=== PATIENT | male | born 1945 | race Hispanic/Latino ===

== ENCOUNTER 2023-06-28 06:02 | Day surgery (SDC) | payer MEDICARE ==
[2023-06-26 09:34] LABS: CREATININE 0.9 mg/dL (0.5-1.3); POTASSIUM 4.5 mmol/L (3.5-5.1)
[2023-06-26 09:35] VITALS: BP 154/70; PULSE 64; RESP 18
[2023-06-26 09:41] LABS: INR <= 0.93 (0.85-1.15); PROTHROMBIN TIME 10.7 SEC (9.6-11.6)
[2023-06-26 09:42] LABS: PARTIAL THROMBOPLASTIN TIME 28.2 SEC (26.3-35.5)
[2023-06-26 09:43] LABS: BASOPHILS # (AUTO) 0.05 K/uL (0.00-0.20); BASOPHILS % (AUTO) 0.6 % (0.0-5.0); EOSINOPHILS # (AUTO) 0.48 K/uL (0.00-0.70); EOSINOPHILS % (AUTO) 5.4 % (0.0-8.0); HEMATOCRIT 44.7 % (42-54); LYMPHOCYTES % (AUTO) 22.9 % (21.0-51.0); MEAN CORPUSCULAR HEMOGLOBIN 32.9 pg (27.0-33.0); MEAN CORPUSCULAR HGB CONC 35.1 g/dL (32.0-36.0); MEAN CORPUSCULAR VOLUME 93.7 fL (79-99); MONOCYTES # (AUTO) 0.8 K/uL (0.1-1.0); NEUTROPHILS # (AUTO) 5.4 K/uL (1.8-7.7); PLATELET COUNT (AUTO) 252 K/uL (130-400); RED BLOOD CELL COUNT(AUTO) 4.77 MIL/uL (4.50-6.20); RED CELL DISTRIBUTION WIDTH 12.2 % (11.0-15.5); WHITE BLOOD COUNT (AUTO) 8.8 K/uL (4.8-10.8)
[2023-06-26 10:19] LABS: B-TYPE NATRIURETIC PEPTIDE 215 pg/mL (0-100)
[2023-06-28] VITALS (9 sets, daily range): BP systolic 140–158; BP diastolic 64–82; PULSE 62–71; RESP 15–18
[~2023-06-28] VITALS: Ht 172.7 cm; Wt 84.3 kg
[~2023-06-28 06:02] MED LIST: AEC81 PO; AMLO-258 PO; CETI10TA57 PO; CHOL100046 PO; ENAL-91 PO; ISOS30TA92 PO; METF-444 PO; METO-391 PO; NITR0.4T50 SL; PARO10TA71 PO; SIMV-46 PO; VITAMIN B12 PO
[2023-06-28] MEDS ORDERED: LIDOCAINE HCL 400MG/20ML VIAL ONE (07:11)
[2023-06-28] MEDS ORDERED: HEPARIN 10,000 UNIT/10ML (1,000 UNIT/ML) VIAL ONE (07:11)
[2023-06-28] MEDS ORDERED: IOHEXOL 350 MG/ML 100ML INFUS..BTL IV ONE ×2 (07:11→07:12)
[2023-06-28] MEDS ORDERED: MIDAZOLAM HCL 1 MG/ML 2ML VIAL ONE (07:34)
[2023-06-28] MEDS ORDERED: FENTANYL CITRATE PF 50 MCG/1 ML 2ML VIAL ONE (07:34)
[2023-06-28] MEDS ORDERED: CLOPIDOGREL 300MG TAB ONE (08:24)
[2023-06-28] MEDS ORDERED: ATROPINE 1MG SYG IVP ONE (08:27)
[2023-06-28] MEDS ORDERED: IOHEXOL-350 50ML VIAL IV ONE (09:15)
[2023-06-28] MEDS ORDERED: ONDANSETRON 4MG INJ ONE (09:21)
[2023-06-28] MEDS ORDERED: NITROGLYCERIN 4.1 GM SPRAY TL ONE (09:39)
[2023-06-28] MEDS ORDERED: MORPHINE 4 MG SYG ONE (09:49)
[2023-06-28] MEDS ORDERED: GLUCAGON 1MG KIT 1 MG ML IM PRN (10:00)
[2023-06-28] MEDS ORDERED: DEXTROSE 50%-WATER 50 ML DISP.SYRIN IV PRN (10:00)
[2023-06-28] MEDS ORDERED: 0.9%NACL 1000ML 1,000 ML IV SCH (10:00)
[2023-06-28] MEDS: FAMOTIDINE 20MG VIAL IV ONE (10:54)
[2023-06-28] MEDS: MAG/ALUM/SIMETH 30 ML UDCUP PO ONE (10:54)
[2023-06-28] MEDS: LIDOCAINE HCL 2% VISCOUS 15 ML UDCUP ONE (10:54)
[2023-06-28] MEDS ORDERED: FAMOTIDINE 20MG VIAL IV ONE (11:00)
[2023-06-28] MEDS ORDERED: MAG/ALUM/SIMETH 30 ML UDCUP PO ONE (11:00)
[2023-06-28] MEDS ORDERED: PANT40TA PO (17:27)
== END 2023-06-28 14:45 | disposition home or self-care (01) ==
LOC: DAH 06:02
PROVIDERS: ATTEND Internal Medicine Cardiovascular Disease
DX: I25.119 Atherosclerotic heart disease of native coronary artery with unspecified angina pectoris (principal); I10 Essential (primary) hypertension; I35.0 Nonrheumatic aortic (valve) stenosis; F41.9 Anxiety disorder, unspecified; E78.5 Hyperlipidemia, unspecified; E11.51 Type 2 diabetes mellitus with diabetic peripheral angiopathy without gangrene; Z87.891 Personal history of nicotine dependence; N52.1 Erectile dysfunction due to diseases classified elsewhere; Z79.01 Long term (current) use of anticoagulants; Z79.899 Other long term (current) drug therapy
CPT/HCPCS: 80048 ×2; 83880; 85025; 85610; 85730; 36415 ×2; 71045 ×2; 93005 ×3; 93458; 92978; 92972; 99285; 84484; 85347 ×3; 85027; 82948 ×2; Q9965 ×2; C1894 ×2; C1725 ×3; C1760; C1874 ×2; C1761; C1887; C1753; C1769; J3490 ×2; J3010; J1644 ×3; J2250; J2405; J2270; Q9967 ×2; C9600; 99156; 99157; J0461

== ENCOUNTER 2023-06-28 15:50 | Emergency (ER) | payer MEDICARE ==
[~2023-06-28] VITALS: Ht 172.7 cm; Wt 82.1 kg
[2023-06-28 16:17] LABS: HEMATOCRIT 43.7 % (42-54); MEAN CORPUSCULAR HEMOGLOBIN 32.8 pg (27.0-33.0); MEAN CORPUSCULAR VOLUME 93.6 fL (79-99); RED BLOOD CELL COUNT(AUTO) 4.67 MIL/uL (4.50-6.20); RED CELL DISTRIBUTION WIDTH 12.3 % (11.0-15.5); WHITE BLOOD COUNT (AUTO) 11.9 K/uL (4.8-10.8)
[2023-06-28 16:37] LABS: CREATININE 1.1 mg/dL (0.5-1.3); POTASSIUM 3.9 mmol/L (3.5-5.1)
[2023-06-28 17:08] VITALS: BP 142/53; PULSE 63; RESP 17
[2023-06-28] MEDS ORDERED: PANT40TA PO (17:27)
[2023-06-28] MEDS: PANTOPRAZOLE 40 MG TAB DR PO SCH (17:41)
== END 2023-06-28 17:49 | disposition home or self-care (01) ==
LOC: EDH 15:50
DX: I12.9 Hypertensive chronic kidney disease with stage 1 through stage 4 chronic kidney disease, or unspecified chronic kidney disease (principal); F41.1 Generalized anxiety disorder; Z79.82 Long term (current) use of aspirin; Z79.84 Long term (current) use of oral hypoglycemic drugs; Z79.899 Other long term (current) drug therapy
CPT/HCPCS: 36415; 71045; 80048; 82948; 84484; 85027; 93005